=== PATIENT | female | born 1935 | race Caucasian/White ===

== ENCOUNTER 2020-03-24 09:17 | Inpatient (IN) ==
[2020-03-24] MEDS ORDERED: DILTIAZEM 25 MG/5 ML VIAL IV ONE (10:45)
[2020-03-24] MEDS ORDERED: DILTIAZEM 50 MG/10 ML VIAL IV STA (10:48)
[2020-03-24 10:59] LABS: Basophils # 0.1 10*3/uL (0.0-0.2); Basophils % 1.2 % (0.0-0.8); Eosinophils # 0.1 10*3/uL (0.0-0.87); Eosinophils % 1.7 % (0.00-10.9); Hematocrit 43.4 VOL% (35.7-47.0); Hemoglobin 14.6 GM/DL (12.0-16.0); Immature Granulocytes % 0.5 %; Immature Granulocytes Absolute 0.03 #; Lymphocytes # 2.2 10*3/uL (1.4-4.0); Mean Corpuscular HGB Conc 33.6 GM/DL (32-36); Mean Corpuscular Volume 88.2 FL (87-102); Mean Platelet Volume 10.6 FL (9.6-12.0); Monocytes % 17.9 % (1.7-12.7); Neutrophils % 42.7 % (38.7-73.9); Platelet Count 252 T/CUMM (130-400); Red Blood Count 4.92 MC/CUMM (3.8-5.5); Red Cell Distribution Width 12.8 % (9.3-17.3)
[2020-03-24] MEDS ORDERED: dilTIAZem Drip 125 MG/125 ML PREMIX IV SCH (11:00)
[2020-03-24 11:27] LABS: Band Neutrophils 2 % (0-10); Eosinophils 2 % (0-10); Hypochromasia 1+; Lymphocytes 35 % (20-55); Microcytosis 1+; Ovalocytes Slight; Platelet Estimate Adequate; Segmented Neutrophils 47 % (50-85); Total Cells Counted 100
[2020-03-24 11:28] LABS: Atypical Lymphocytes Few
[2020-03-24 11:31] LABS: INR 1.1; PT Patient Result 12.2 SECS (9.8-11.9)
[2020-03-24 11:55] LABS: Albumin 3.4 G/DL (3.4-5.0); Bilirubin,Total 0.7 MG/DL (0.2-1.0); Calcium 8.8 MG/DL (8.5-10.1); Osmolality,Calculated 267.4 MOS/KG (273-304); Total Protein 6.2 G/DL (6.4-8.3)
[2020-03-24] MEDS ORDERED: SODIUM CHLORIDE 0.9% 1,000 ML IV STA (12:21)
[2020-03-24] MEDS ORDERED: ONDANSETRON 4 MG/2 ML VIAL IV PRN (12:29)
[2020-03-24] MEDS ORDERED: ACETAMINOPHEN 325 MG TABLET PO PRN (12:29)
[2020-03-24] MEDS ORDERED: PIPERACILLIN/TAZOBACTAM 3,375 MG in SODIUM CHLORIDE 0.9% 100 ML IV STA (12:31)
[2020-03-24] MEDS ORDERED: AMIODARONE INJ 450 MG in DEXTROSE 5% 241 ML IV SCH ×2 (13:30→19:30)
[2020-03-24] MEDS: SODIUM CHLORIDE 0.9% 1,000 ML IV SCH (14:14)
[2020-03-24] MEDS ORDERED: MAGNESIUM SULF RIDER 2 GM in PREMIX 1 EACH IV STA (14:44)
[2020-03-24] MEDS ORDERED: POTASSIUM CHLORIDE 20 MEQ TABLET PO ONE (14:44)
[2020-03-24 17:27] LABS: Apearance,Urine CLEAR (Clear); Bilirubin,Urine Negative (Negative); Blood, Urine Negative (Negative); Glucose,Urine (UA) Negative (Negative); Hyaline Casts,Urine 11 /LPF (0-3); Ketones,Urine 20 mg/dL (Negative); Mucus,Urine Few /LPF (Occasional); Nitrite,Urine Negative (Negative); Protein,Urine 30 MG/DL; RBC,Urine 1 /HPF (0-4); Squamous Epithelial Cell,Urine Occasional /HPF (0-10); Urine Color Yellow (Yellow); Urine Specific Gravity 1.015 (1.001-1.035); Urine Urobilinogen < 2.0 EU/DL (0.2-1.0); WBC,Urine 1 /HPF (0-6)
[2020-03-24] MEDS: DOCUSATE SODIUM 100 MG CAPSULE PO SCH ×2 (21:31→23:41)
[2020-03-24] MEDS: DABIGATRAN 150 MG CAPSULE PO SCH (22:46)
[2020-03-24] MEDS: traMADol 50 MG TABLET PO SCH (23:40)
[2020-03-24] MEDS: AMITRIPTYLINE 50 MG TABLET PO SCH (23:40)
[2020-03-24] MEDS: amLODIPine 5 MG TABLET PO SCH (23:40)
[2020-03-24] MEDS: BRIMONIDINE 0.1% OPH SOLN 5 ML BOTTLE LEFT EYE SCH (23:41)
[2020-03-24] MEDS: BIMATOPROST 0.01% OPH SOLN 2.5 ML BOTTLE BOTH EYES SCH (23:41)
[2020-03-25] MEDS: SODIUM CHLORIDE 0.9% 1,000 ML IV SCH ×4 (02:17→22:15)
[2020-03-25 04:11] LABS: Basophils % 0.8 % (0.0-0.8); Eosinophils # 0.2 10*3/uL (0.0-0.87); Eosinophils % 3.2 % (0.00-10.9); Hematocrit 34.5 VOL% (35.7-47.0); Immature Granulocytes % 0.2 %; Immature Granulocytes Absolute 0.01 #; Lymphocytes # 2.6 10*3/uL (1.4-4.0); Lymphocytes % 49.2 % (21.3-54.2); Mean Corpuscular HGB Conc 34.2 GM/DL (32-36); Mean Corpuscular Volume 87.1 FL (87-102); Mean Platelet Volume 10.4 FL (9.6-12.0); Monocytes % 13.7 % (1.7-12.7); Neutrophils % 32.9 % (38.7-73.9); Red Blood Count 3.96 MC/CUMM (3.8-5.5); Red Cell Distribution Width 12.5 % (9.3-17.3); White Blood Count 5.3 T/CUMM (4-12)
[2020-03-25 04:14] LABS: Hemoglobin 11.8 GM/DL (12.0-16.0); Platelet Count 201 T/CUMM (130-400)
[2020-03-25 04:34] LABS: Calcium 7.9 MG/DL (8.5-10.1); Osmolality,Calculated 265.2 MOS/KG (273-304)
[2020-03-25 04:41] LABS: Hypochromasia 1+; Microcytosis 1+; Platelet Estimate Adequate
[2020-03-25] MEDS: LEVOTHYROXINE 75 MCG TABLET PO SCH (05:52)
[2020-03-25] MEDS ORDERED: POTASSIUM CHLORIDE 20 MEQ TABLET PO ONE (08:36)
[2020-03-25] MEDS ORDERED: PROPRANOLOL 120 MG PO SCH (09:00)
[2020-03-25] MEDS: traMADol 50 MG TABLET PO SCH ×2 (09:56→21:08)
[2020-03-25] MEDS: BRIMONIDINE 0.1% OPH SOLN 5 ML BOTTLE LEFT EYE SCH ×2 (09:56→21:18)
[2020-03-25] MEDS: DOCUSATE SODIUM 100 MG CAPSULE PO SCH ×3 (09:56→21:15)
[2020-03-25] MEDS: DABIGATRAN 150 MG CAPSULE PO SCH ×2 (09:56→21:13)
[2020-03-25] MEDS: PANTOPRAZOLE 40 MG TABLET PO SCH (09:57)
[2020-03-25] MEDS: GABAPENTIN 300 MG CAPSULE PO SCH ×4 (09:57→21:11)
[2020-03-25] MEDS: CARBOXYMETHYLCELLULOSE 1% OPH SOLN BOTH EYES SCH ×4 (09:57→21:16)
[2020-03-25] MEDS: AMIODARONE 200 MG TABLET PO SCH ×2 (13:03→21:11)
[2020-03-25] MEDS: AMITRIPTYLINE 50 MG TABLET PO SCH (21:08)
[2020-03-25] MEDS: amLODIPine 5 MG TABLET PO SCH (21:08)
[2020-03-25] MEDS: BIMATOPROST 0.01% OPH SOLN 2.5 ML BOTTLE BOTH EYES SCH (21:19)
[2020-03-26 04:16] LABS: Basophils % 0.8 % (0.0-0.8); Eosinophils # 0.4 10*3/uL (0.0-0.87); Eosinophils % 7.2 % (0.00-10.9); Hematocrit 30.6 VOL% (35.7-47.0); Hemoglobin 10.2 GM/DL (12.0-16.0); Lymphocytes # 2.9 10*3/uL (1.4-4.0); Lymphocytes % 55.8 % (21.3-54.2); Mean Corpuscular HGB Conc 33.3 GM/DL (32-36); Mean Corpuscular Volume 89.5 FL (87-102); Monocytes % 11.7 % (1.7-12.7); Neutrophils % 24.5 % (38.7-73.9); Platelet Count 180 T/CUMM (130-400); Red Blood Count 3.42 MC/CUMM (3.8-5.5); Red Cell Distribution Width 12.9 % (9.3-17.3); White Blood Count 5.1 T/CUMM (4-12)
[2020-03-26] MEDS: SODIUM CHLORIDE 0.9% 1,000 ML IV SCH (04:26)
[2020-03-26 04:30] LABS: Calcium 7.5 MG/DL (8.5-10.1); Osmolality,Calculated 272.5 MOS/KG (273-304)
[2020-03-26 04:40] LABS: Atypical Lymphocytes Few; Eosinophils 5 % (0-10); Hypochromasia 1+; Lymphocytes 61 % (20-55); Microcytosis 1+; Platelet Estimate Adequate; Segmented Neutrophils 26 % (50-85); Total Cells Counted 100
[2020-03-26] MEDS: LEVOTHYROXINE 75 MCG TABLET PO SCH (06:00)
[2020-03-26 06:02] LABS: Hematocrit 31.6 VOL% (35.7-47.0); Hemoglobin 10.4 GM/DL (12.0-16.0)
[2020-03-26] MEDS: PANTOPRAZOLE 40 MG TABLET PO SCH (08:32)
[2020-03-26] MEDS: DOCUSATE SODIUM 100 MG CAPSULE PO SCH ×2 (08:32→21:15)
[2020-03-26] MEDS: POTASSIUM CHLORIDE 20 MEQ TABLET PO SCH (08:32)
[2020-03-26] MEDS: BRIMONIDINE 0.1% OPH SOLN 5 ML BOTTLE LEFT EYE SCH ×2 (08:32→21:17)
[2020-03-26] MEDS: traMADol 50 MG TABLET PO SCH ×2 (08:32→21:16)
[2020-03-26] MEDS: AMIODARONE 200 MG TABLET PO SCH ×2 (08:32→21:14)
[2020-03-26] MEDS: CARBOXYMETHYLCELLULOSE 1% OPH SOLN BOTH EYES SCH ×4 (08:32→21:16)
[2020-03-26] MEDS: DABIGATRAN 150 MG CAPSULE PO SCH ×2 (08:32→21:14)
[2020-03-26] MEDS: GABAPENTIN 300 MG CAPSULE PO SCH ×4 (08:32→21:16)
[2020-03-26] MEDS: dilTIAZem Drip 125 MG/125 ML PREMIX IV SCH ×2 (08:42→18:51)
[2020-03-26] MEDS ORDERED: POTASSIUM CHLORIDE 20 MEQ TABLET PO ONE (08:43)
[2020-03-26] MEDS: PROPRANOLOL 80 MG PO SCH (09:06)
[2020-03-26] MEDS ORDERED: NITROGLYCERIN DRIP 50 MG/250 ML BOTTLE IV SCH (12:45)
[2020-03-26 13:58] LABS: Hematocrit 32.2 VOL% (35.7-47.0); Hemoglobin 10.6 GM/DL (12.0-16.0)
[2020-03-26] MEDS: DILTIAZEM 30 MG TABLET PO SCH ×3 (14:05→21:15)
[2020-03-26] MEDS: FOLIC ACID 1 MG TABLET PO SCH (21:15)
[2020-03-26] MEDS: AMITRIPTYLINE 50 MG TABLET PO SCH (21:16)
[2020-03-26] MEDS: BIMATOPROST 0.01% OPH SOLN 2.5 ML BOTTLE BOTH EYES SCH (21:17)
[2020-03-27] MEDS: LEVOTHYROXINE 100 MCG TABLET PO SCH (06:24)
[2020-03-27] MEDS: BRIMONIDINE 0.1% OPH SOLN 5 ML BOTTLE LEFT EYE SCH ×2 (08:33→21:07)
[2020-03-27] MEDS: DOCUSATE SODIUM 100 MG CAPSULE PO SCH ×2 (08:34→21:06)
[2020-03-27] MEDS: DABIGATRAN 150 MG CAPSULE PO SCH ×2 (08:34→21:05)
[2020-03-27] MEDS: GABAPENTIN 300 MG CAPSULE PO SCH ×4 (08:34→21:05)
[2020-03-27] MEDS: CHOLECALCIFEROL 1,000 UNIT TABLET PO SCH (08:34)
[2020-03-27] MEDS: traMADol 50 MG TABLET PO SCH ×2 (08:34→21:06)
[2020-03-27] MEDS: DILTIAZEM 30 MG TABLET PO SCH (08:34)
[2020-03-27] MEDS: AMIODARONE 200 MG TABLET PO SCH ×2 (08:35→21:06)
[2020-03-27] MEDS: FOLIC ACID 1 MG TABLET PO SCH ×2 (08:35→21:57)
[2020-03-27] MEDS: FERROUS SULFATE 325 MG TABLET PO SCH (08:35)
[2020-03-27] MEDS: POTASSIUM CHLORIDE 20 MEQ TABLET PO SCH ×2 (08:35→21:05)
[2020-03-27] MEDS: PANTOPRAZOLE 40 MG TABLET PO SCH (08:35)
[2020-03-27] MEDS: CARBOXYMETHYLCELLULOSE 1% OPH SOLN BOTH EYES SCH ×4 (08:36→21:07)
[2020-03-27] MEDS: PROPRANOLOL 80 MG PO SCH (08:36)
[2020-03-27] MEDS ORDERED: POTASSIUM CHLORIDE 20 MEQ TABLET PO ONE (09:16)
[2020-03-27] MEDS ORDERED: PROPRANOLOL LA 80 MG CAPSULE PO SCH (09:30)
[2020-03-27] MEDS: dilTIAZem Drip 125 MG/125 ML PREMIX IV SCH (10:00)
[2020-03-27] MEDS: ALPHA LIPOIC ACID 50 MG PO SCH (10:02)
[2020-03-27] MEDS: PROPRANOLOL 40 MG TABLET PO SCH ×2 (10:35→21:03)
[2020-03-27] MEDS ORDERED: PSYLLIUM POWDER 3.7 GM/PACK PO ONE (19:32)
[2020-03-27] MEDS ORDERED: FUROSEMIDE 20 MG/2 ML VIAL IV ONE (21:03)
[2020-03-27] MEDS ORDERED: ALBUTEROL/IPRATROPIUM 3 ML NEB RESP TX PRN (21:03)
[2020-03-27] MEDS ORDERED: LORazepam 0.5 MG TABLET PO ONE (21:03)
[2020-03-27] MEDS: AMITRIPTYLINE 50 MG TABLET PO SCH (21:06)
[2020-03-27] MEDS: BIMATOPROST 0.01% OPH SOLN 2.5 ML BOTTLE BOTH EYES SCH (21:07)
[2020-03-28] MEDS: LEVOTHYROXINE 100 MCG TABLET PO SCH (06:13)
[2020-03-28] MEDS: PROPRANOLOL 40 MG TABLET PO SCH ×2 (09:34→21:07)
[2020-03-28] MEDS: traMADol 50 MG TABLET PO SCH ×2 (09:34→21:08)
[2020-03-28] MEDS: DOCUSATE SODIUM 100 MG CAPSULE PO SCH ×2 (09:36→21:07)
[2020-03-28] MEDS: PANTOPRAZOLE 40 MG TABLET PO SCH (09:37)
[2020-03-28] MEDS: FOLIC ACID 1 MG TABLET PO SCH ×2 (09:37→21:07)
[2020-03-28] MEDS: GABAPENTIN 300 MG CAPSULE PO SCH ×4 (09:37→21:07)
[2020-03-28] MEDS: CHOLECALCIFEROL 1,000 UNIT TABLET PO SCH (09:37)
[2020-03-28] MEDS: DABIGATRAN 150 MG CAPSULE PO SCH ×2 (09:38→21:07)
[2020-03-28] MEDS: CARBOXYMETHYLCELLULOSE 1% OPH SOLN BOTH EYES SCH ×4 (09:38→21:07)
[2020-03-28] MEDS: POTASSIUM CHLORIDE 20 MEQ TABLET PO SCH ×2 (09:38→21:08)
[2020-03-28] MEDS: BRIMONIDINE 0.1% OPH SOLN 5 ML BOTTLE LEFT EYE SCH ×2 (09:39→21:08)
[2020-03-28] MEDS: ALPHA LIPOIC ACID 50 MG PO SCH (09:39)
[2020-03-28] MEDS: FERROUS SULFATE 325 MG TABLET PO SCH (09:39)
[2020-03-28] MEDS: AMIODARONE 200 MG TABLET PO SCH ×2 (09:39→21:08)
[2020-03-28] MEDS ORDERED: FUROSEMIDE 20 MG/2 ML VIAL IV PRN (10:53)
[2020-03-28] MEDS: AMITRIPTYLINE 50 MG TABLET PO SCH (21:08)
[2020-03-28] MEDS: BIMATOPROST 0.01% OPH SOLN 2.5 ML BOTTLE BOTH EYES SCH (21:08)
[2020-03-29] MEDS: LEVOTHYROXINE 100 MCG TABLET PO SCH (06:02)
[2020-03-29] MEDS: BRIMONIDINE 0.1% OPH SOLN 5 ML BOTTLE LEFT EYE SCH (08:56)
[2020-03-29] MEDS: PROPRANOLOL 40 MG TABLET PO SCH (08:58)
[2020-03-29] MEDS: CHOLECALCIFEROL 1,000 UNIT TABLET PO SCH (08:59)
[2020-03-29] MEDS: FERROUS SULFATE 325 MG TABLET PO SCH (08:59)
[2020-03-29] MEDS: FOLIC ACID 1 MG TABLET PO SCH (08:59)
[2020-03-29] MEDS: GABAPENTIN 300 MG CAPSULE PO SCH (08:59)
[2020-03-29] MEDS: AMIODARONE 200 MG TABLET PO SCH (08:59)
[2020-03-29] MEDS: traMADol 50 MG TABLET PO SCH (08:59)
[2020-03-29] MEDS: POTASSIUM CHLORIDE 20 MEQ TABLET PO SCH (08:59)
[2020-03-29] MEDS: PANTOPRAZOLE 40 MG TABLET PO SCH (09:00)
[2020-03-29] MEDS: DOCUSATE SODIUM 100 MG CAPSULE PO SCH (09:00)
[2020-03-29] MEDS: CARBOXYMETHYLCELLULOSE 1% OPH SOLN BOTH EYES SCH (09:00)
[2020-03-29] MEDS: DABIGATRAN 150 MG CAPSULE PO SCH (09:00)
[2020-03-29] MEDS: ALPHA LIPOIC ACID 50 MG PO SCH (09:01)
[2020-03-29 14:02] VITALS: BP 138/73
[2020-04-02] MEDS ORDERED: Alendronate [Fosamax] 70 MG PO SCH (09:00)
== END 2020-03-29 12:40 | disposition home health service (06) | DRG 309 ==
LOC: N.ED 09:17 → N.EDINP 12:28 → N.TELEN 16:30
PROVIDERS: ADMIT Family Medicine; ATTEND Family Medicine

== ENCOUNTER 2020-08-19 11:23 | Inpatient (IN) ==
[2020-08-19] MEDS ORDERED: DILTIAZEM 50 MG/10 ML VIAL IV STA (12:11)
[2020-08-19] MEDS ORDERED: FUROSEMIDE 40 MG/4 ML VIAL IV STA (12:11)
[2020-08-19] MEDS ORDERED: DILTIAZEM INJ 100 MG in SODIUM CHLORIDE 0.9% 100 ML IV SCH (12:30)
[2020-08-19 12:43] LABS: Basophils # 0.1 10*3/uL (0.0-0.2); Basophils % 1.6 % (0.0-0.8); Eosinophils # 0.5 10*3/uL (0.0-0.87); Eosinophils % 6.3 % (0.00-10.9); Hemoglobin 10.8 GM/DL (12.0-16.0); Immature Granulocytes % 0.1 %; Immature Granulocytes Absolute 0.01 #; Lymphocytes # 1.7 10*3/uL (1.4-4.0); Lymphocytes % 20.2 % (21.3-54.2); Mean Corpuscular HGB Conc 31.8 GM/DL (32-36); Mean Platelet Volume 9.2 FL (9.6-12.0); Monocytes % 12.5 % (1.7-12.7); Neutrophils % 59.3 % (38.7-73.9); Platelet Count 365 T/CUMM (130-400); Red Blood Count 3.58 MC/CUMM (3.8-5.5); White Blood Count 8.2 T/CUMM (4-12)
[2020-08-19 12:52] LABS: INR 1.2
[2020-08-19 13:08] LABS: Albumin 3.5 G/DL (3.4-5.0); Calcium 8.9 MG/DL (8.5-10.1); Osmolality,Calculated 275.5 MOS/KG (273-304); Total Protein 6.6 G/DL (6.4-8.3)
[2020-08-19] MEDS ORDERED: DILTIAZEM INJ 100 MG in SODIUM CHLORIDE 0.9% 100 ML IV ONE (13:30)
[2020-08-19] MEDS ORDERED: ONDANSETRON 4 MG/2 ML VIAL IV PRN (15:41)
[2020-08-19] MEDS ORDERED: ACETAMINOPHEN 325 MG TABLET PO PRN (15:41)
[2020-08-19] MEDS: GABAPENTIN 300 MG CAPSULE PO SCH (21:09)
[2020-08-19] MEDS: DOCUSATE SODIUM 100 MG CAPSULE PO SCH (21:10)
[2020-08-19] MEDS: DILTIAZEM INJ 100 MG in SODIUM CHLORIDE 0.9% 100 ML IV SCH (21:51)
[2020-08-20] MEDS: DILTIAZEM INJ 100 MG in SODIUM CHLORIDE 0.9% 100 ML IV SCH ×2 (06:51→23:33)
[2020-08-20 07:14] LABS: Free T4 (Free Thyroxine) 1.67 NG/DL (0.76-1.46); Thyroid Stimulating Hormone 1.27 uIU/ml (0.358-3.74)
[2020-08-20] MEDS ORDERED: MAGNESIUM SULF RIDER 2 GM in PREMIX 1 EACH IV ONE (08:40)
[2020-08-20] MEDS ORDERED: NON-FORMULARY MEDICATION (Alendronate [Fosamax] 70 mg Tablet) PO SCH (09:00)
[2020-08-20] MEDS ORDERED: DILTIAZEM CD 120 MG CAPSULE PO SCH (09:00)
[2020-08-20] MEDS ORDERED: ALPHA LIPOIC ACID 50 MG PO SCH (09:00)
[2020-08-20] MEDS: DOCUSATE SODIUM 100 MG CAPSULE PO SCH ×2 (10:05→22:14)
[2020-08-20] MEDS: FOLIC ACID 1 MG TABLET PO SCH ×2 (10:05→22:16)
[2020-08-20] MEDS: LEVOTHYROXINE 100 MCG TABLET PO SCH (10:05)
[2020-08-20] MEDS: PROPRANOLOL 20 MG TABLET PO SCH ×3 (10:06→22:16)
[2020-08-20] MEDS: CARBOXYMETHYLCELLULOSE 1% OPH SOLN BOTH EYES SCH ×4 (10:09→22:17)
[2020-08-20] MEDS: PANTOPRAZOLE 40 MG TABLET PO SCH (10:10)
[2020-08-20] MEDS: FERROUS SULFATE 325 MG TABLET PO SCH (10:10)
[2020-08-20] MEDS: GABAPENTIN 300 MG CAPSULE PO SCH ×4 (10:10→22:13)
[2020-08-20] MEDS: MAGNESIUM OXIDE 400 MG TABLET PO SCH (10:11)
[2020-08-20] MEDS: CYANOCOBALAMIN 100 MCG TABLET PO SCH (10:12)
[2020-08-20] MEDS: POTASSIUM CHLORIDE 20 MEQ TABLET PO SCH ×2 (10:12→22:15)
[2020-08-20] MEDS: traMADol 50 MG TABLET PO SCH ×3 (10:13→22:13)
[2020-08-20] MEDS: CHOLECALCIFEROL 1,000 UNIT TABLET PO SCH (10:13)
[2020-08-20] MEDS: DABIGATRAN 150 MG CAPSULE PO SCH ×2 (10:17→22:14)
[2020-08-20] MEDS ORDERED: amLODIPine 5 MG TABLET PO SCH (21:00)
[2020-08-20] MEDS: ESTROGENS (CONJ) VAG CREAM 30 GM TUBE VAG SCH (22:17)
[2020-08-20] MEDS: BIMATOPROST 0.01% OPH SOLN 2.5 ML BOTTLE BOTH EYES SCH (22:17)
[2020-08-21] MEDS: LEVOTHYROXINE 100 MCG TABLET PO SCH (05:42)
[2020-08-21 06:24] LABS: Calcium 8.9 MG/DL (8.5-10.1); Osmolality,Calculated 270.8 MOS/KG (273-304); Potassium 4.5 MMOL/L (3.5-5.1)
[2020-08-21] MEDS: CARBOXYMETHYLCELLULOSE 1% OPH SOLN BOTH EYES SCH ×4 (09:06→21:33)
[2020-08-21] MEDS: DABIGATRAN 150 MG CAPSULE PO SCH ×2 (09:07→21:33)
[2020-08-21] MEDS: CYANOCOBALAMIN 100 MCG TABLET PO SCH (09:07)
[2020-08-21] MEDS: GABAPENTIN 300 MG CAPSULE PO SCH ×4 (09:09→21:32)
[2020-08-21] MEDS: DILTIAZEM CD 120 MG CAPSULE PO SCH ×2 (09:09→21:32)
[2020-08-21] MEDS: MAGNESIUM OXIDE 400 MG TABLET PO SCH (09:10)
[2020-08-21] MEDS: PROPRANOLOL 20 MG TABLET PO SCH ×3 (09:10→21:32)
[2020-08-21] MEDS: FERROUS SULFATE 325 MG TABLET PO SCH (09:10)
[2020-08-21] MEDS: traMADol 50 MG TABLET PO SCH ×3 (09:11→21:32)
[2020-08-21] MEDS: FOLIC ACID 1 MG TABLET PO SCH ×2 (09:11→21:33)
[2020-08-21] MEDS: CHOLECALCIFEROL 1,000 UNIT TABLET PO SCH (09:13)
[2020-08-21] MEDS: PANTOPRAZOLE 40 MG TABLET PO SCH (09:13)
[2020-08-21] MEDS: DOCUSATE SODIUM 100 MG CAPSULE PO SCH ×2 (09:13→21:32)
[2020-08-21] MEDS: POTASSIUM CHLORIDE 20 MEQ TABLET PO SCH ×2 (09:14→21:32)
[2020-08-21] MEDS: BIMATOPROST 0.01% OPH SOLN 2.5 ML BOTTLE BOTH EYES SCH (21:33)
[2020-08-21] MEDS: ESTROGENS (CONJ) VAG CREAM 30 GM TUBE VAG SCH (21:33)
[2020-08-21] MEDS: DILTIAZEM INJ 100 MG in SODIUM CHLORIDE 0.9% 100 ML IV SCH (21:34)
[2020-08-22] MEDS: LEVOTHYROXINE 100 MCG TABLET PO SCH (05:51)
[2020-08-22] MEDS: DOCUSATE SODIUM 100 MG CAPSULE PO SCH ×2 (09:17→23:11)
[2020-08-22] MEDS: POTASSIUM CHLORIDE 20 MEQ TABLET PO SCH ×2 (09:17→23:11)
[2020-08-22] MEDS: DILTIAZEM CD 120 MG CAPSULE PO SCH ×2 (09:18→23:11)
[2020-08-22] MEDS: FERROUS SULFATE 325 MG TABLET PO SCH (09:18)
[2020-08-22] MEDS: FOLIC ACID 1 MG TABLET PO SCH ×2 (09:19→23:11)
[2020-08-22] MEDS: traMADol 50 MG TABLET PO SCH ×3 (09:19→23:12)
[2020-08-22] MEDS: PROPRANOLOL 20 MG TABLET PO SCH ×3 (09:19→23:11)
[2020-08-22] MEDS: CHOLECALCIFEROL 1,000 UNIT TABLET PO SCH (09:19)
[2020-08-22] MEDS: MAGNESIUM OXIDE 400 MG TABLET PO SCH (09:20)
[2020-08-22] MEDS: CYANOCOBALAMIN 100 MCG TABLET PO SCH (09:22)
[2020-08-22] MEDS: GABAPENTIN 300 MG CAPSULE PO SCH ×4 (09:22→23:12)
[2020-08-22] MEDS: DABIGATRAN 150 MG CAPSULE PO SCH ×2 (09:22→23:12)
[2020-08-22] MEDS: PANTOPRAZOLE 40 MG TABLET PO SCH (09:23)
[2020-08-22] MEDS: CARBOXYMETHYLCELLULOSE 1% OPH SOLN BOTH EYES SCH ×4 (09:26→23:12)
[2020-08-22] MEDS: DILTIAZEM INJ 100 MG in SODIUM CHLORIDE 0.9% 100 ML IV SCH (23:12)
[2020-08-22] MEDS: ESTROGENS (CONJ) VAG CREAM 30 GM TUBE VAG SCH (23:12)
[2020-08-22] MEDS: BIMATOPROST 0.01% OPH SOLN 2.5 ML BOTTLE BOTH EYES SCH (23:12)
[2020-08-23 05:25] LABS: Basophils # 0.2 10*3/uL (0.0-0.2); Basophils % 1.7 % (0.0-0.8); Eosinophils # 0.5 10*3/uL (0.0-0.87); Eosinophils % 5.9 % (0.00-10.9); Hematocrit 31.6 VOL% (35.7-47.0); Hemoglobin 10.2 GM/DL (12.0-16.0); Immature Granulocytes % 0.3 %; Immature Granulocytes Absolute 0.03 #; Lymphocytes # 1.5 10*3/uL (1.4-4.0); Lymphocytes % 17.1 % (21.3-54.2); Mean Corpuscular HGB Conc 32.3 GM/DL (32-36); Mean Corpuscular Volume 92.9 FL (87-102); Mean Platelet Volume 9.6 FL (9.6-12.0); Monocytes % 14.8 % (1.7-12.7); Neutrophils % 60.2 % (38.7-73.9); Platelet Count 324 T/CUMM (130-400); Red Cell Distribution Width 12.8 % (9.3-17.3); White Blood Count 8.6 T/CUMM (4-12)
[2020-08-23 05:32] LABS: Calcium 8.9 MG/DL (8.5-10.1); Osmolality,Calculated 272.8 MOS/KG (273-304); Potassium 4.5 MMOL/L (3.5-5.1)
[2020-08-23] MEDS: LEVOTHYROXINE 100 MCG TABLET PO SCH (05:45)
[2020-08-23] MEDS: DILTIAZEM CD 120 MG CAPSULE PO SCH (09:42)
[2020-08-23] MEDS: FERROUS SULFATE 325 MG TABLET PO SCH (09:43)
[2020-08-23] MEDS: DOCUSATE SODIUM 100 MG CAPSULE PO SCH (09:43)
[2020-08-23] MEDS: FOLIC ACID 1 MG TABLET PO SCH (09:44)
[2020-08-23] MEDS: PROPRANOLOL 20 MG TABLET PO SCH (09:45)
[2020-08-23] MEDS: MAGNESIUM OXIDE 400 MG TABLET PO SCH (09:47)
[2020-08-23] MEDS: GABAPENTIN 300 MG CAPSULE PO SCH ×2 (09:47→12:30)
[2020-08-23] MEDS: DABIGATRAN 150 MG CAPSULE PO SCH (09:48)
[2020-08-23] MEDS: PANTOPRAZOLE 40 MG TABLET PO SCH (09:50)
[2020-08-23] MEDS: traMADol 50 MG TABLET PO SCH (09:50)
[2020-08-23] MEDS: CHOLECALCIFEROL 1,000 UNIT TABLET PO SCH (09:52)
[2020-08-23] MEDS: CYANOCOBALAMIN 100 MCG TABLET PO SCH (09:52)
[2020-08-23] MEDS: POTASSIUM CHLORIDE 20 MEQ TABLET PO SCH (09:57)
[2020-08-23] MEDS: CARBOXYMETHYLCELLULOSE 1% OPH SOLN BOTH EYES SCH ×2 (09:58→12:30)
[2020-08-23 11:52] VITALS: BP 158/67
== END 2020-08-23 12:50 | disposition home health service (06) | DRG 308 ==
LOC: N.ED 11:23 → N.EDINP 15:41 → N.TELES 16:44
PROVIDERS: ADMIT Family Medicine; ATTEND Family Medicine

== ENCOUNTER 2021-05-28 08:33 | Inpatient (IN) ==
[2021-05-28] MEDS ORDERED: ASPIRIN 325 MG TABLET PO STA (08:51)
[2021-05-28] MEDS ORDERED: NITROGLYCERIN SL 0.4 MG TABLET SL PRN ×2 (08:51→11:59)
[2021-05-28] MEDS ORDERED: DILTIAZEM 50 MG/10 ML VIAL IV STA (08:55)
[2021-05-28 09:01] LABS: Basophils # 0.1 10*3/uL (0.0-0.2); Basophils % 1.2 % (0.0-0.8); Eosinophils # 0.6 10*3/uL (0.0-0.87); Eosinophils % 5.6 % (0.00-10.9); Hematocrit 37.2 VOL% (35.7-47.0); Hemoglobin 12.3 GM/DL (12.0-16.0); Immature Granulocytes % 0.4 %; Immature Granulocytes Absolute 0.04 #; Lymphocytes # 1.6 10*3/uL (1.4-4.0); Lymphocytes % 16.2 % (21.3-54.2); Mean Corpuscular HGB Conc 33.1 GM/DL (32-36); Mean Corpuscular Volume 94.7 FL (87-102); Mean Platelet Volume 10.2 FL (9.6-12.0); Monocytes % 8.2 % (1.7-12.7); Neutrophils % 68.4 % (38.7-73.9); Platelet Count 283 T/CUMM (130-400); Red Blood Count 3.93 MC/CUMM (3.8-5.5); Red Cell Distribution Width 12.8 % (9.3-17.3); White Blood Count 9.9 T/CUMM (4-12)
[2021-05-28] MEDS: DILTIAZEM INJ 100 MG in SODIUM CHLORIDE 0.9% 100 ML IV SCH ×2 (09:06→23:56)
[2021-05-28] MEDS ORDERED: ACETAMINOPHEN 500 MG TABLET PO STA (10:47)
[2021-05-28] MEDS ORDERED: MAGNESIUM SULF RIDER 2 GM/50 ML PREMIX IV PRN (11:53)
[2021-05-28] MEDS ORDERED: ONDANSETRON 4 MG/2 ML VIAL IV PRN (11:53)
[2021-05-28] MEDS ORDERED: MORPHINE 2 MG/1 ML SYRINGE IV PRN (11:53)
[2021-05-28] MEDS ORDERED: MAGNESIUM SULF RIDER 4 GM/100 ML PREMIX IV PRN (11:53)
[2021-05-28] MEDS ORDERED: POTASSIUM CHLORIDE 20 MEQ TABLET PO PRN (11:53)
[2021-05-28] MEDS ORDERED: DILTIAZEM INJ 100 MG in SODIUM CHLORIDE 0.9% 100 ML IV SCH (12:00)
[2021-05-28] MEDS: GABAPENTIN 300 MG CAPSULE PO SCH ×3 (14:30→21:13)
[2021-05-28] MEDS: DEXTROSE 5% NACL 0.45% 1,000 ML IV SCH (14:38)
[2021-05-28] MEDS: POLYVINYL ALCOHOL 1.4% OPH SOLN 15 ML BOTTLE BOTH EYES SCH ×2 (16:44→21:13)
[2021-05-28] MEDS: BIMATOPROST 0.01% OPH SOLN 2.5 ML BOTTLE BOTH EYES SCH (21:13)
[2021-05-28] MEDS: DOCUSATE SODIUM 100 MG CAPSULE PO SCH (21:13)
[2021-05-28] MEDS: FOLIC ACID 1 MG TABLET PO SCH (21:14)
[2021-05-28] MEDS: traMADol 50 MG TABLET PO SCH (21:14)
[2021-05-28] MEDS: ESTROGENS (CONJ) VAG CREAM 30 GM TUBE VAG SCH (21:14)
[2021-05-28] MEDS: DABIGATRAN 150 MG CAPSULE PO SCH (21:14)
[2021-05-29 04:28] LABS: Basophils # 0.1 10*3/uL (0.0-0.2); Basophils % 1.1 % (0.0-0.8); Eosinophils # 0.4 10*3/uL (0.0-0.87); Eosinophils % 5.8 % (0.00-10.9); Hematocrit 33.9 VOL% (35.7-47.0); Hemoglobin 11.1 GM/DL (12.0-16.0); Immature Granulocytes % 0.4 %; Immature Granulocytes Absolute 0.03 #; Mean Corpuscular HGB Conc 32.7 GM/DL (32-36); Mean Corpuscular Volume 93.4 FL (87-102); Monocytes % 11.9 % (1.7-12.7); Neutrophils % 53.8 % (38.7-73.9); Platelet Count 252 T/CUMM (130-400); Red Blood Count 3.63 MC/CUMM (3.8-5.5); Red Cell Distribution Width 12.5 % (9.3-17.3); White Blood Count 7.4 T/CUMM (4-12)
[2021-05-29 04:49] LABS: Calcium 8.6 MG/DL (8.5-10.1); Osmolality,Calculated 269.1 MOS/KG (273-304); Potassium 3.5 MMOL/L (3.5-5.1)
[2021-05-29 04:54] LABS: Risk Ratio 3.4; VLDL Cholesterol 24.8 MG/DL
[2021-05-29] MEDS ORDERED: LEVOTHYROXINE 100 MCG TABLET PO SCH (06:30)
[2021-05-29] MEDS: GABAPENTIN 300 MG CAPSULE PO SCH ×4 (09:50→21:19)
[2021-05-29] MEDS: MULTIVITAMIN (OCUVITE) TABLET PO SCH (09:50)
[2021-05-29] MEDS: DEXTROSE 5% NACL 0.45% 1,000 ML IV SCH ×2 (09:50→17:46)
[2021-05-29] MEDS: traMADol 50 MG TABLET PO SCH ×3 (09:51→21:19)
[2021-05-29] MEDS: FOLIC ACID 1 MG TABLET PO SCH ×2 (09:51→21:20)
[2021-05-29] MEDS: DABIGATRAN 150 MG CAPSULE PO SCH ×2 (09:51→21:19)
[2021-05-29] MEDS: BRIMONIDINE 0.1% OPH SOLN 5 ML BOTTLE BOTH EYES SCH (09:52)
[2021-05-29] MEDS: POLYVINYL ALCOHOL 1.4% OPH SOLN 15 ML BOTTLE BOTH EYES SCH ×4 (09:52→21:24)
[2021-05-29] MEDS: CYANOCOBALAMIN SL SCH (09:53)
[2021-05-29] MEDS: DILTIAZEM INJ 100 MG in SODIUM CHLORIDE 0.9% 100 ML IV SCH (09:53)
[2021-05-29] MEDS: FERROUS SULFATE 325 MG TABLET PO SCH (12:18)
[2021-05-29] MEDS: CHOLECALCIFEROL 1,000 UNIT TABLET PO SCH (12:18)
[2021-05-29] MEDS: PROPRANOLOL 120 MG PO SCH (13:19)
[2021-05-29] MEDS: BACILLUS COAGULANS CAPLET PO SCH ×2 (14:39→15:33)
[2021-05-29] MEDS: DOCUSATE SODIUM 100 MG CAPSULE PO SCH (21:20)
[2021-05-29] MEDS: BIMATOPROST 0.01% OPH SOLN 2.5 ML BOTTLE BOTH EYES SCH (21:23)
[2021-05-29] MEDS: ESTROGENS (CONJ) VAG CREAM 30 GM TUBE VAG SCH (21:24)
[2021-05-30] MEDS: LEVOTHYROXINE 88 MCG TABLET PO SCH (05:47)
[2021-05-30] MEDS ORDERED: POTASSIUM CHLORIDE 20 MEQ TABLET PO ONE (09:19)
[2021-05-30] MEDS: BACILLUS COAGULANS CAPLET PO SCH (09:46)
[2021-05-30] MEDS: FOLIC ACID 1 MG TABLET PO SCH ×2 (09:46→20:26)
[2021-05-30] MEDS: traMADol 50 MG TABLET PO SCH ×3 (09:46→20:26)
[2021-05-30] MEDS: GABAPENTIN 300 MG CAPSULE PO SCH ×4 (09:46→20:26)
[2021-05-30] MEDS: MULTIVITAMIN (OCUVITE) TABLET PO SCH (09:46)
[2021-05-30] MEDS: BRIMONIDINE 0.1% OPH SOLN 5 ML BOTTLE BOTH EYES SCH (09:47)
[2021-05-30] MEDS: POLYVINYL ALCOHOL 1.4% OPH SOLN 15 ML BOTTLE BOTH EYES SCH ×4 (09:47→20:27)
[2021-05-30] MEDS: DILTIAZEM INJ 100 MG in SODIUM CHLORIDE 0.9% 100 ML IV SCH ×2 (10:00→20:32)
[2021-05-30] MEDS: DABIGATRAN 150 MG CAPSULE PO SCH ×2 (11:20→20:27)
[2021-05-30 12:16] LABS: Basophils # 0.1 10*3/uL (0.0-0.2); Basophils % 1.4 % (0.0-0.8); Eosinophils # 0.6 10*3/uL (0.0-0.87); Eosinophils % 6.2 % (0.00-10.9); Hematocrit 35.9 VOL% (35.7-47.0); Hemoglobin 12.5 GM/DL (12.0-16.0); Immature Granulocytes % 0.3 %; Immature Granulocytes Absolute 0.03 #; Lymphocytes # 1.8 10*3/uL (1.4-4.0); Lymphocytes % 19.8 % (21.3-54.2); Mean Corpuscular HGB Conc 34.8 GM/DL (32-36); Mean Corpuscular Volume 91.6 FL (87-102); Mean Platelet Volume 9.6 FL (9.6-12.0); Monocytes % 10.3 % (1.7-12.7); Platelet Count 294 T/CUMM (130-400); Red Blood Count 3.92 MC/CUMM (3.8-5.5); Red Cell Distribution Width 12.6 % (9.3-17.3); White Blood Count 8.9 T/CUMM (4-12)
[2021-05-30] MEDS: PROPRANOLOL 120 MG PO SCH (12:17)
[2021-05-30 12:33] LABS: Calcium 9.2 MG/DL (8.5-10.1); Potassium 4.3 MMOL/L (3.5-5.1)
[2021-05-30] MEDS: DEXTROSE 5% NACL 0.45% 1,000 ML IV SCH (13:30)
[2021-05-30] MEDS: CYANOCOBALAMIN SL SCH (13:31)
[2021-05-30] MEDS: CHOLECALCIFEROL 1,000 UNIT TABLET PO SCH (14:27)
[2021-05-30] MEDS: ASCORBIC ACID 500 MG TABLET PO SCH ×2 (14:28→20:26)
[2021-05-30] MEDS: FERROUS SULFATE 325 MG TABLET PO SCH (14:28)
[2021-05-30] MEDS: DOCUSATE SODIUM 100 MG CAPSULE PO SCH (20:26)
[2021-05-30] MEDS: BIMATOPROST 0.01% OPH SOLN 2.5 ML BOTTLE BOTH EYES SCH (20:28)
[2021-05-30] MEDS: ESTROGENS (CONJ) VAG CREAM 30 GM TUBE VAG SCH (20:37)
[2021-05-31] MEDS: LEVOTHYROXINE 88 MCG TABLET PO SCH (06:06)
[2021-05-31 06:41] LABS: Basophils # 0.1 10*3/uL (0.0-0.2); Basophils % 1.4 % (0.0-0.8); Eosinophils # 1.2 10*3/uL (0.0-0.87); Eosinophils % 12.2 % (0.00-10.9); Hematocrit 37.5 VOL% (35.7-47.0); Hemoglobin 12.4 GM/DL (12.0-16.0); Immature Granulocytes % 0.4 %; Immature Granulocytes Absolute 0.04 #; Lymphocytes # 2.8 10*3/uL (1.4-4.0); Lymphocytes % 28.6 % (21.3-54.2); Mean Corpuscular HGB Conc 33.1 GM/DL (32-36); Mean Corpuscular Volume 93.5 FL (87-102); Mean Platelet Volume 9.8 FL (9.6-12.0); Monocytes % 11.6 % (1.7-12.7); Neutrophils % 45.8 % (38.7-73.9); Platelet Count 340 T/CUMM (130-400); Red Blood Count 4.01 MC/CUMM (3.8-5.5); Red Cell Distribution Width 12.7 % (9.3-17.3); White Blood Count 9.7 T/CUMM (4-12)
[2021-05-31 06:56] LABS: Calcium 8.9 MG/DL (8.5-10.1); Potassium 3.9 MMOL/L (3.5-5.1)
[2021-05-31 07:01] LABS: Eosinophils 11 % (0-10); Lymphocytes 31 % (20-55); Platelet Estimate Adequate; Segmented Neutrophils 48 % (50-85); Total Cells Counted 100
[2021-05-31] MEDS ORDERED: MAGNESIUM SULF RIDER 2 GM/50 ML PREMIX IV ONE (07:17)
[2021-05-31] MEDS ORDERED: POTASSIUM CHLORIDE 20 MEQ TABLET PO ONE (07:17)
[2021-05-31] MEDS ORDERED: PROPRANOLOL 120 MG PO SCH (09:00)
[2021-05-31] MEDS: ASCORBIC ACID 500 MG TABLET PO SCH (09:51)
[2021-05-31] MEDS: BACILLUS COAGULANS CAPLET PO SCH (09:51)
[2021-05-31] MEDS: MULTIVITAMIN (OCUVITE) TABLET PO SCH (09:51)
[2021-05-31] MEDS: FOLIC ACID 1 MG TABLET PO SCH (09:51)
[2021-05-31] MEDS: DABIGATRAN 150 MG CAPSULE PO SCH (09:52)
[2021-05-31] MEDS: POLYVINYL ALCOHOL 1.4% OPH SOLN 15 ML BOTTLE BOTH EYES SCH (09:52)
[2021-05-31] MEDS: GABAPENTIN 300 MG CAPSULE PO SCH (09:52)
[2021-05-31] MEDS: BRIMONIDINE 0.1% OPH SOLN 5 ML BOTTLE BOTH EYES SCH (09:52)
[2021-05-31] MEDS: traMADol 50 MG TABLET PO SCH (09:52)
[2021-05-31] MEDS: CYANOCOBALAMIN SL SCH (09:54)
[2021-05-31 12:27] VITALS: BP 149/47
== END 2021-05-31 12:30 | disposition home or self-care (01) | DRG 309 ==
LOC: EDBD → EDUNIT# → N.ED 08:33 → N.EDINP 11:53 → N.TELES 14:55
PROVIDERS: ADMIT Family Medicine; ATTEND Family Medicine

== ENCOUNTER 2021-10-31 17:40 | Inpatient (IN) ==
[2021-10-31 18:30] LABS: Basophils # 0.1 10*3/uL (0.0-0.2); Basophils % 0.7 % (0.0-0.8); Eosinophils # 0.2 10*3/uL (0.0-0.87); Eosinophils % 1.4 % (0.00-10.9); Hematocrit 37.6 VOL% (35.7-47.0); Hemoglobin 12.7 GM/DL (12.0-16.0); Immature Granulocytes % 0.6 %; Immature Granulocytes Absolute 0.07 #; Lymphocytes # 0.8 10*3/uL (1.4-4.0); Lymphocytes % 6.3 % (21.3-54.2); Mean Corpuscular HGB Conc 33.8 GM/DL (32-36); Mean Corpuscular Volume 91.7 FL (87-102); Mean Platelet Volume 9.3 FL (9.6-12.0); Monocytes # 1.3 10*3/uL (0.11-0.8); Monocytes % 10.3 % (1.7-12.7); Neutrophils % 80.7 % (38.7-73.9); Platelet Count 261 T/CUMM (130-400); Red Cell Distribution Width 13.2 % (9.3-17.3); White Blood Count 12.4 T/CUMM (4-12)
[2021-10-31 19:03] LABS: Albumin 3.5 G/DL (3.4-5.0); Bilirubin,Total 0.7 MG/DL (0.20-1.00); Calcium 8.9 MG/DL (8.5-10.1); Osmolality,Calculated 273.7 MOS/KG (273-304); Potassium 3.6 MMOL/L (3.5-5.1); Total Protein 6.6 G/DL (6.4-8.2)
[2021-10-31] MEDS ORDERED: methylPREDNISolone SOD SUC 125 MG/2 ML VIAL IV STA (23:51)
[2021-10-31] MEDS ORDERED: ALBUTEROL/IPRATROPIUM 3 ML NEB RESP TX STA (23:51)
[2021-11-01] MEDS ORDERED: LEVOFLOXACIN INJ 500 MG/100 ML PREMIX IV ONE (00:47)
[2021-11-01 00:54] LABS: Bacteria,Urine Occasional /HPF (Few); Bilirubin,Urine Negative (Negative); Blood, Urine Negative (Negative); Glucose,Urine (UA) Negative (Negative); Ketones,Urine 40 mg/dL (Negative); Mucus,Urine Many /LPF (Occasional); Nitrite,Urine Negative (Negative); Protein,Urine 30 mg/dL (Negative); RBC,Urine 2 /HPF (0-4); Squamous Epithelial Cell,Urine Occasional /HPF (0-10); Urine Appearance Clear (Clear); Urine Color Yellow (Yellow); Urine Specific Gravity >= 1.030 (1.001-1.035); Urine Urobilinogen 0.2 eU/dL (<2.0)
[2021-11-01] MEDS ORDERED: traMADol 50 MG TABLET PO STA (00:57)
[2021-11-01] MEDS ORDERED: GABAPENTIN 300 MG CAPSULE PO ONE (00:58)
[2021-11-01] MEDS ORDERED: ACETAMINOPHEN 325 MG TABLET PO PRN (07:09)
[2021-11-01] MEDS ORDERED: ALBUTEROL/IPRATROPIUM 3 ML NEB RESP TX PRN (07:09)
[2021-11-01] MEDS ORDERED: ONDANSETRON 4 MG/2 ML VIAL IV PRN (07:09)
[2021-11-01] MEDS ORDERED: LEVOFLOXACIN INJ 500 MG/100 ML PREMIX IV SCH (07:09)
[2021-11-01] MEDS ORDERED: traMADol 50 MG TABLET PO PRN (07:09)
[2021-11-01] MEDS ORDERED: SODIUM CHLORIDE 0.9% 1,000 ML IV SCH (07:09)
[2021-11-01] MEDS ORDERED: MAGNESIUM SULF RIDER 2 GM/50 ML PREMIX IV PRN (08:12)
[2021-11-01] MEDS ORDERED: MAGNESIUM SULF RIDER 4 GM/100 ML PREMIX IV PRN (08:12)
[2021-11-01] MEDS ORDERED: LEVOFLOXACIN INJ 250 MG/50 ML PREMIX IV SCH (08:30)
[2021-11-01] MEDS: FUROSEMIDE 40 MG/4 ML VIAL IV SCH (09:36)
[2021-11-01] MEDS: PANTOPRAZOLE 40 MG TABLET PO SCH (09:38)
[2021-11-01] MEDS: GABAPENTIN 300 MG CAPSULE PO SCH ×4 (09:38→20:57)
[2021-11-01] MEDS: methylPREDNISolone SOD SUC 40 MG/1 ML VIAL IV SCH ×3 (09:38→20:58)
[2021-11-01] MEDS ORDERED: POTASSIUM CHLORIDE 20 MEQ TABLET PO ONE (15:55)
[2021-11-01] MEDS: METOPROLOL TARTRATE 5 MG/5 ML VIAL IV SCH ×3 (16:01→16:11)
[2021-11-01] MEDS: DILTIAZEM INJ 100 MG in SODIUM CHLORIDE 0.9% 100 ML IV SCH (16:38)
[2021-11-01] MEDS: DABIGATRAN 150 MG CAPSULE PO SCH (20:57)
[2021-11-02] MEDS: DILTIAZEM INJ 100 MG in SODIUM CHLORIDE 0.9% 100 ML IV SCH ×2 (03:35→15:55)
[2021-11-02 04:52] LABS: Basophils % 0.1 % (0.0-0.8); Hematocrit 33.6 VOL% (35.7-47.0); Hemoglobin 11.4 GM/DL (12.0-16.0); Immature Granulocytes % 0.5 %; Lymphocytes # 0.9 10*3/uL (1.4-4.0); Lymphocytes % 4.7 % (21.3-54.2); Mean Corpuscular HGB Conc 33.9 GM/DL (32-36); Mean Corpuscular Volume 90.8 FL (87-102); Mean Platelet Volume 9.6 FL (9.6-12.0); Monocytes # 0.8 10*3/uL (0.11-0.8); Neutrophils % 90.7 % (38.7-73.9); Platelet Count 382 T/CUMM (130-400); Red Cell Distribution Width 13.3 % (9.3-17.3); White Blood Count 19.7 T/CUMM (4-12)
[2021-11-02 05:09] LABS: Albumin 3.1 G/DL (3.4-5.0); Bilirubin,Total 0.5 MG/DL (0.20-1.00); Calcium 8.8 MG/DL (8.5-10.1); Osmolality,Calculated 276.8 MOS/KG (273-304); Potassium 3.3 MMOL/L (3.5-5.1); Total Protein 6.8 G/DL (6.4-8.2)
[2021-11-02 05:19] LABS: Risk Ratio 2.74
[2021-11-02 05:23] LABS: Band Neutrophils 1 % (0-10); Hypochromia Slight; Lymphocytes 1 % (20-55); Microcytosis Slight; Platelet Estimate Adequate; Total Cells Counted 100
[2021-11-02] MEDS ORDERED: POTASSIUM CHLORIDE 20 MEQ TABLET PO ONE (06:26)
[2021-11-02] MEDS ORDERED: LEVALBUTEROL 0.63 MG/3 ML NEB RESP TX PRN (08:16)
[2021-11-02] MEDS: GABAPENTIN 300 MG CAPSULE PO SCH ×4 (10:31→20:36)
[2021-11-02] MEDS: DILTIAZEM CD 120 MG CAPSULE PO SCH (10:32)
[2021-11-02] MEDS: DABIGATRAN 150 MG CAPSULE PO SCH ×2 (10:32→20:36)
[2021-11-02] MEDS: PANTOPRAZOLE 40 MG TABLET PO SCH (10:34)
[2021-11-02] MEDS: FUROSEMIDE 40 MG/4 ML VIAL IV SCH (10:36)
[2021-11-02] MEDS: PROPRANOLOL 120 MG PO SCH (10:46)
[2021-11-03 05:05] LABS: Basophils % 0.1 % (0.0-0.8); Hematocrit 30.9 VOL% (35.7-47.0); Hemoglobin 10.4 GM/DL (12.0-16.0); Immature Granulocytes % 0.8 %; Immature Granulocytes Absolute 0.14 #; Lymphocytes # 1.2 10*3/uL (1.4-4.0); Mean Corpuscular HGB Conc 33.7 GM/DL (32-36); Mean Platelet Volume 9.5 FL (9.6-12.0); Monocytes # 1.2 10*3/uL (0.11-0.8); Monocytes % 6.8 % (1.7-12.7); Neutrophils % 85.3 % (38.7-73.9); Platelet Count 381 T/CUMM (130-400); Red Blood Count 3.36 MC/CUMM (3.8-5.5); Red Cell Distribution Width 13.3 % (9.3-17.3); White Blood Count 17.8 T/CUMM (4-12)
[2021-11-03 08:10] VITALS: BP 161/70
[2021-11-03] MEDS ORDERED: cefTRIAXone 1,000 MG in SODIUM CHLORIDE 0.9% 100 ML IV ONE (08:30)
[2021-11-03] MEDS: DILTIAZEM CD 120 MG CAPSULE PO SCH (08:41)
[2021-11-03] MEDS: FUROSEMIDE 40 MG/4 ML VIAL IV SCH (08:41)
[2021-11-03] MEDS: DABIGATRAN 150 MG CAPSULE PO SCH (08:41)
[2021-11-03] MEDS: GABAPENTIN 300 MG CAPSULE PO SCH (08:41)
[2021-11-03] MEDS: PANTOPRAZOLE 40 MG TABLET PO SCH (08:41)
[2021-11-03] MEDS: PROPRANOLOL 120 MG PO SCH (08:58)
== END 2021-11-03 11:22 | disposition home or self-care (01) | DRG 309 ==
LOC: N.ED 17:40 → N.EDINP 11-01 00:47 → N.TELEN 11-01 13:37
PROVIDERS: ADMIT Family Medicine; ATTEND Family Medicine

== ENCOUNTER 2021-12-09 08:00 | Inpatient (IN) ==
[2021-12-09] MEDS ORDERED: MAGNESIUM SULF RIDER 2 GM/50 ML PREMIX IV PRN (15:38)
[2021-12-09] MEDS ORDERED: hydrALAZINE 20 MG/1 ML VIAL IV PRN (15:38)
[2021-12-09] MEDS ORDERED: MORPHINE 2 MG/1 ML SYRINGE IV PRN (15:38)
[2021-12-09] MEDS ORDERED: MAGNESIUM SULF RIDER 4 GM/100 ML PREMIX IV PRN (15:38)
[2021-12-09] MEDS ORDERED: diphenhydrAMINE CAP 25 MG CAPSULE PO PRN (15:38)
[2021-12-09] MEDS ORDERED: SIMETHICONE CHEW 125 MG TABLET PO PRN (15:38)
[2021-12-09] MEDS ORDERED: ZALEPLON 5 MG CAPSULE PO PRN (15:38)
[2021-12-09] MEDS ORDERED: ONDANSETRON 4 MG/2 ML VIAL IV PRN (15:38)
[2021-12-09] MEDS: SOTALOL 80 MG TABLET PO SCH ×2 (16:00→21:17)
[2021-12-09 16:03] LABS: Basophils # 0.1 10*3/uL (0.0-0.2); Basophils % 1.5 % (0.0-0.8); Eosinophils # 0.3 10*3/uL (0.0-0.87); Eosinophils % 3.8 % (0.00-10.9); Hematocrit 38.4 VOL% (35.7-47.0); Hemoglobin 12.4 GM/DL (12.0-16.0); Immature Granulocytes % 0.7 %; Immature Granulocytes Absolute 0.06 #; Lymphocytes # 2.1 10*3/uL (1.4-4.0); Lymphocytes % 25.6 % (21.3-54.2); Mean Corpuscular HGB Conc 32.3 GM/DL (32-36); Mean Corpuscular Volume 95.8 FL (87-102); Mean Platelet Volume 9.9 FL (9.6-12.0); Monocytes # 1.2 10*3/uL (0.11-0.8); Monocytes % 14.7 % (1.7-12.7); Neutrophils % 53.7 % (38.7-73.9); Platelet Count 320 T/CUMM (130-400); Red Blood Count 4.01 MC/CUMM (3.8-5.5); Red Cell Distribution Width 13.3 % (9.3-17.3); White Blood Count 8.2 T/CUMM (4-12)
[2021-12-09 16:20] LABS: Albumin 3.2 G/DL (3.4-5.0); Bilirubin,Total 0.4 MG/DL (0.20-1.00); Calcium 9.4 MG/DL (8.5-10.1); Potassium 5.1 MMOL/L (3.5-5.1)
[2021-12-09] MEDS ORDERED: ACETAMINOPHEN 325 MG TABLET PO PRN (16:49)
[2021-12-09] MEDS ORDERED: DILTIAZEM 30 MG TABLET PO PRN (16:57)
[2021-12-09] MEDS: GABAPENTIN 300 MG CAPSULE PO SCH ×2 (17:16→21:17)
[2021-12-09 19:49] LABS: Mucus,Urine Occasional /LPF (Occasional); Squamous Epithelial Cell,Urine Occasional /HPF (0-10); Urine Color Yellow (Yellow)
[2021-12-09 19:50] LABS: Bilirubin,Urine Negative (Negative); Blood, Urine Trace mg/dL (Negative); Glucose,Urine (UA) Negative (Negative); Ketones,Urine Negative (Negative); Nitrite,Urine Positive (Negative); Protein,Urine Negative (Negative); Urine Appearance Slightly Cloudy (Clear); Urine Urobilinogen 0.2 eU/dL (<2.0); Urine pH 5.5 (4.5-8.0)
[2021-12-09] MEDS: PROPRANOLOL 40 MG TABLET PO SCH (21:15)
[2021-12-09] MEDS: CARBOXYMETHYLCELLULOSE 1% OPH SOLN BOTH EYES SCH (21:16)
[2021-12-09] MEDS: MAGNESIUM CHLORIDE 64 MG TABLET PO SCH (21:16)
[2021-12-09] MEDS: DABIGATRAN 150 MG CAPSULE PO SCH (21:17)
[2021-12-09] MEDS: traMADol 50 MG TABLET PO SCH (21:17)
[2021-12-09] MEDS: FOLIC ACID 1 MG TABLET PO SCH (21:17)
[2021-12-09] MEDS: DOCUSATE SODIUM 100 MG CAPSULE PO SCH (21:18)
[2021-12-09] MEDS: BIMATOPROST 0.01% OPH SOLN 2.5 ML BOTTLE BOTH EYES SCH (21:18)
[2021-12-09] MEDS: [UNRECOGNIZED DRUG - OTHER] PO SCH ×2 (21:18→22:42)
[2021-12-09] MEDS: PREMARIN VAGINAL CREAM VAG SCH ×2 (21:18→22:42)
[2021-12-10 05:17] LABS: Basophils # 0.1 10*3/uL (0.0-0.2); Basophils % 1.2 % (0.0-0.8); Eosinophils # 0.3 10*3/uL (0.0-0.87); Eosinophils % 3.2 % (0.00-10.9); Hematocrit 35.9 VOL% (35.7-47.0); Hemoglobin 11.9 GM/DL (12.0-16.0); Immature Granulocytes % 0.7 %; Immature Granulocytes Absolute 0.07 #; Lymphocytes % 20.5 % (21.3-54.2); Mean Corpuscular HGB Conc 33.1 GM/DL (32-36); Mean Corpuscular Volume 93.2 FL (87-102); Mean Platelet Volume 9.9 FL (9.6-12.0); Monocytes # 1.4 10*3/uL (0.11-0.8); Neutrophils % 60.4 % (38.7-73.9); Platelet Count 324 T/CUMM (130-400); Red Blood Count 3.85 MC/CUMM (3.8-5.5); Red Cell Distribution Width 13.4 % (9.3-17.3); White Blood Count 9.7 T/CUMM (4-12)
[2021-12-10] MEDS: LEVOTHYROXINE 100 MCG TABLET PO SCH (05:35)
[2021-12-10] MEDS: PANTOPRAZOLE 40 MG TABLET PO SCH (05:35)
[2021-12-10 05:39] LABS: Albumin 3.3 G/DL (3.4-5.0); Bilirubin,Total 0.4 MG/DL (0.20-1.00); Osmolality,Calculated 272.7 MOS/KG (273-304); Potassium 4.1 MMOL/L (3.5-5.1)
[2021-12-10] MEDS: SOTALOL 80 MG TABLET PO SCH ×2 (10:12→21:32)
[2021-12-10] MEDS: FOLIC ACID 1 MG TABLET PO SCH ×2 (10:12→21:31)
[2021-12-10] MEDS: CARBOXYMETHYLCELLULOSE 1% OPH SOLN BOTH EYES SCH ×4 (10:12→21:39)
[2021-12-10] MEDS: CYANOCOBALAMIN 500 MCG TABLET PO SCH (10:13)
[2021-12-10] MEDS: BACILLUS COAGULANS CAPLET PO SCH (10:13)
[2021-12-10] MEDS: MAGNESIUM CHLORIDE 64 MG TABLET PO SCH ×3 (10:13→21:32)
[2021-12-10] MEDS: traMADol 50 MG TABLET PO SCH ×3 (10:13→21:32)
[2021-12-10] MEDS: MULTIVITAMIN (OCUVITE) TABLET PO SCH (10:14)
[2021-12-10] MEDS: DABIGATRAN 150 MG CAPSULE PO SCH ×2 (10:14→21:32)
[2021-12-10] MEDS: PROPRANOLOL 40 MG TABLET PO SCH ×2 (10:14→21:32)
[2021-12-10] MEDS: GABAPENTIN 300 MG CAPSULE PO SCH ×4 (10:15→21:31)
[2021-12-10] MEDS: BRIMONIDINE 0.1% OPH SOLN 5 ML BOTTLE BOTH EYES SCH (10:17)
[2021-12-10] MEDS: ALPHA LIPOIC ACID 600 MG PO SCH (10:17)
[2021-12-10] MEDS: [UNRECOGNIZED DRUG - OTHER] PO SCH ×2 (10:18→21:33)
[2021-12-10] MEDS: CHOLECALCIFEROL 1,000 UNIT TABLET PO SCH (15:14)
[2021-12-10] MEDS: FERROUS SULFATE 325 MG TABLET PO SCH (15:14)
[2021-12-10] MEDS: BIMATOPROST 0.01% OPH SOLN 2.5 ML BOTTLE BOTH EYES SCH (21:30)
[2021-12-10] MEDS: DOCUSATE SODIUM 100 MG CAPSULE PO SCH (21:31)
[2021-12-10] MEDS: PREMARIN VAGINAL CREAM VAG SCH (21:33)
[2021-12-11] MEDS: PANTOPRAZOLE 40 MG TABLET PO SCH (06:38)
[2021-12-11] MEDS: LEVOTHYROXINE 100 MCG TABLET PO SCH (06:38)
[2021-12-11] MEDS: MULTIVITAMIN (OCUVITE) TABLET PO SCH (09:24)
[2021-12-11] MEDS: FOLIC ACID 1 MG TABLET PO SCH ×2 (09:24→21:06)
[2021-12-11] MEDS: BACILLUS COAGULANS CAPLET PO SCH (09:24)
[2021-12-11] MEDS: CYANOCOBALAMIN 500 MCG TABLET PO SCH (09:24)
[2021-12-11] MEDS: SOTALOL 80 MG TABLET PO SCH ×2 (09:25→21:04)
[2021-12-11] MEDS: GABAPENTIN 300 MG CAPSULE PO SCH ×4 (09:25→21:05)
[2021-12-11] MEDS: MAGNESIUM CHLORIDE 64 MG TABLET PO SCH ×3 (09:25→21:04)
[2021-12-11] MEDS: traMADol 50 MG TABLET PO SCH ×3 (09:25→21:05)
[2021-12-11] MEDS: DABIGATRAN 150 MG CAPSULE PO SCH ×2 (09:25→21:04)
[2021-12-11] MEDS: [UNRECOGNIZED DRUG - OTHER] PO SCH ×2 (09:26→21:06)
[2021-12-11] MEDS: BRIMONIDINE 0.1% OPH SOLN 5 ML BOTTLE BOTH EYES SCH (09:27)
[2021-12-11] MEDS: ALPHA LIPOIC ACID 600 MG PO SCH (09:27)
[2021-12-11] MEDS: PROPRANOLOL 40 MG TABLET PO SCH ×2 (09:29→21:04)
[2021-12-11] MEDS: CARBOXYMETHYLCELLULOSE 1% OPH SOLN BOTH EYES SCH ×4 (09:29→21:04)
[2021-12-11] MEDS: CHOLECALCIFEROL 1,000 UNIT TABLET PO SCH (12:13)
[2021-12-11] MEDS: FERROUS SULFATE 325 MG TABLET PO SCH (12:13)
[2021-12-11] MEDS: DOCUSATE SODIUM 100 MG CAPSULE PO SCH (21:06)
[2021-12-11] MEDS: BIMATOPROST 0.01% OPH SOLN 2.5 ML BOTTLE BOTH EYES SCH (21:07)
[2021-12-11] MEDS: PREMARIN VAGINAL CREAM VAG SCH (21:15)
[2021-12-12] MEDS: LEVOTHYROXINE 100 MCG TABLET PO SCH (06:26)
[2021-12-12] MEDS: PANTOPRAZOLE 40 MG TABLET PO SCH (06:26)
[2021-12-12] MEDS: BRIMONIDINE 0.1% OPH SOLN 5 ML BOTTLE BOTH EYES SCH (09:26)
[2021-12-12] MEDS: SOTALOL 80 MG TABLET PO SCH (09:26)
[2021-12-12] MEDS: MAGNESIUM CHLORIDE 64 MG TABLET PO SCH (09:27)
[2021-12-12] MEDS: DABIGATRAN 150 MG CAPSULE PO SCH (09:27)
[2021-12-12] MEDS: MULTIVITAMIN (OCUVITE) TABLET PO SCH (09:27)
[2021-12-12] MEDS: GABAPENTIN 300 MG CAPSULE PO SCH (09:28)
[2021-12-12] MEDS: BACILLUS COAGULANS CAPLET PO SCH (09:28)
[2021-12-12] MEDS: traMADol 50 MG TABLET PO SCH (09:28)
[2021-12-12] MEDS: PROPRANOLOL 40 MG TABLET PO SCH (09:29)
[2021-12-12] MEDS: ALPHA LIPOIC ACID 600 MG PO SCH (09:41)
[2021-12-12] MEDS: [UNRECOGNIZED DRUG - OTHER] PO SCH (09:41)
[2021-12-12] MEDS: CYANOCOBALAMIN 500 MCG TABLET PO SCH (09:51)
[2021-12-12] MEDS: CARBOXYMETHYLCELLULOSE 1% OPH SOLN BOTH EYES SCH (09:51)
[2021-12-12] MEDS: FOLIC ACID 1 MG TABLET PO SCH (10:00)
[2021-12-12 11:07] VITALS: BP 139/67
== END 2021-12-12 10:56 | disposition home or self-care (01) | DRG 310 ==
LOC: N.TELES → OBSVTOIN 13:37
PROVIDERS: ADMIT Internal Medicine Cardiovascular Disease; ATTEND Internal Medicine Cardiovascular Disease